=== PATIENT | male | born 1960 ===

== ENCOUNTER 2021-09-05 19:06 | Emergency (ER) | payer BC ==
[2021-09-05] MEDS ORDERED: Sodium Chloride 0.9% 1,000 ML IV ONE (20:16)
[2021-09-05] MEDS ORDERED: Sodium Chloride 0.9% 500 ML IV ONE (21:21)
[2021-09-05] MEDS ORDERED: Ketorolac 60 MG/2 ML SDV IVPUSH ONE (22:45)
[2021-09-05] MEDS ORDERED: Potassium Chloride 10 MEQ Tab.ER PO ONE (22:46)
[2021-09-05] MEDS: Ketorolac 30 MG/ML SDV ONE ×2 (22:53→22:58)
== END 2021-09-06 00:35 ==
LOC: LB.ED 19:06
DX: R10.9 Unspecified abdominal pain (principal); R23.3 Spontaneous ecchymoses; N50.819 Testicular pain, unspecified; N50.82 Scrotal pain; R21 Rash and other nonspecific skin eruption
CPT/HCPCS: 36415; 80053; 81003; 85025; 85610; 85730; 86140; 96374; 99283; 99284; A9270; J1885; J7030; J7040

== ENCOUNTER 2021-09-07 21:32 | Emergency (ER) | payer BC ==
[2021-09-07] MEDS ORDERED: Sodium Chloride 0.9% 10 ML Syringe FLUSH PRN (22:08)
[2021-09-07] MEDS: Sodium Chloride 0.9% 1,000 ML IV ONE (22:42)
[2021-09-07] MEDS: methylPREDNISolone Sodium Succinate 40 MG/1 ML SDV IVPUSH SCH (22:50)
[2021-09-07] MEDS: Acetaminophen 500 MG Tab PO ONE (22:50)
[2021-09-07] MEDS: methylPREDNISolone Sodium Succinate 40 MG/1 ML SDV ONE (22:54)
[2021-09-07] MEDS ORDERED: predniSONE 10 MG Tab ONE (23:30)
== END 2021-09-07 23:58 | disposition home or self-care (01) ==
LOC: LB.ED 21:32
DX: D69.0 Allergic purpura (principal)
CPT/HCPCS: 36415; 80053; 85025; 96374; 99283; A9270; J2920; J7030; J7512; 99281